=== PATIENT | female | born 1995 | race Caucasian/White ===

== ENCOUNTER → 2021-02-02 | Outpatient (CLI) | payer OTHER | END | disposition home or self-care (01) | LOC: RADPV 10:38 | PROVIDERS: ATTEND Family Medicine | DX: N88.8 Other specified noninflammatory disorders of cervix uteri (principal); E28.2 Polycystic ovarian syndrome; N93.9 Abnormal uterine and vaginal bleeding, unspecified | CPT/HCPCS: 76830; 76856 ==